=== PATIENT | female | born 1950 | race Caucasian/White ===

== ENCOUNTER 2018-09-25 09:46 | Inpatient (IN) | payer MEDICARE ==
[~2018-09-25] VITALS: Ht 167.6 cm; Wt 78.5 kg
[2018-10-29] VITALS (12 sets, daily range): BP systolic 110–157; BP diastolic 53–85; PULSE 55–98; TEMP 96.5–98.1
[2018-10-29] MEDS ORDERED: CLARITIN 1010 MG/TAB PO (02:06)
[2018-10-29] MEDS ORDERED: MULTIPLE VITAMI1 CAP PO (02:06)
[2018-10-29] MEDS ORDERED: OMEGA-3 1000 MG1 CAP PO (02:07)
[2018-10-29] MEDS ORDERED: CYMBALTA 20MG20 MG PO (02:08)
[2018-10-29] MEDS ORDERED: FLONASE NASAL S16 GM NS (02:08)
[2018-10-29] MEDS ORDERED: PRIL40 PO (02:08)
[2018-10-29] MEDS ORDERED: XANAX 0.5MG0.5 MG PO (02:09)
--- NOTE | 2018-10-29 07:08 | NUR ---
report from Maria ZAIDI.
--- NOTE | 2018-10-29 10:47 | NUR ---
PT TO ROOM 324 PER BED WITH DORINDA ZAIDI GIVING REPORT @ 1020. PT IS DROWSEY AND AROUSES TO VERBAL. LUNGS CLEAR, BOWEL SOUNDS ACTIVE, DRESSING TO LEFT KNEE CDI WITH AQUACEL OVER INCISION. SCDS TEDS AND POLAR PAC INPLACE.PT DENIES FEELING BELOW HIPS. IV TO PUMP PER ORDERS. PT TURNED TO SIDE AND WRINKELS SMOOTHED.
--- NOTE | 2018-10-29 11:09 | NUR ---
ANALI met with the patient and patient's , Robby, to discuss discharge plan. The patient lives in [place] with her . She reports independence with ADLs and has a walker. The patient's PCP is Dr. Samuel Araiza and she receives her medications at [facility]. She reports no difficulties obtaining her meds. The patient does not have advanced directives in EMR, but she states that she does have them completed. The patient plans to return home with her and receive outpatient therapy at the [facility] upon discharge. No additional needs at this time.
--- NOTE | 2018-10-29 21:30 | NUR ---
Assessment completed. Patient is A&O x 4. VSS, currently on 3 liters of supplemental O2 via nasal cannula. Pain is controlled at this time with current oral regimen. Aquacell dressing to left knee is CDI with cryocuff maintained to knee. Pedal pulses intact. BLE hiral hose/scds on. Encouraged ankle pumps while laying in bed. Briones catheter to DD with yellow clear urine draining. Patient had a large emesis while out in the hallway ambulating with staff, reported afterwards that she felt better and did not feel nauseous anymore. Ambulated approximately 100 feet with walker and gait belt, gait slow and steady. IVF infusing with intermittent antibiotic. Bed is in a low position with call light in reach.
--- NOTE | 2018-10-29 21:59 | NUR ---
Made a small snack for patient to take with oral pain medications since she had a large emesis. Patient tolerated small snack with no c/o nausea.
--- NOTE | 2018-10-29 23:40 | NUR ---
Patient called out stating she had vomitted, reported that she felt better afterwards and didn't feel nauseous anymore encouraged patient to try prn Zofran to assist since this was the second time she had vomitted and patient agreed.
[2018-10-30 00:11] VITALS: BP 149/77; PULSE 83; TEMP 98
--- NOTE | 2018-10-30 03:00 | NUR ---
Patient is resting in bed with eyes closed and even respirations, no signs of distress.
[2018-10-30 05:42] VITALS: BP 147/69; PULSE 77; TEMP 98.6
--- NOTE | 2018-10-30 05:54 | NUR ---
Patient has rested well through the night. VSS. Tele maintained. Pain controlled to left knee with alternating [place] at this time. BLE hiral hose removed at this time. Moderate amount of swelling noted to LLE, pedal pulses remain intact. Aquacell dressing to left knee remains CDI with a fresh ice pack applied this morning. Patient does voice concerns that she feels she has gone backwards in regards to progressing. Bed remains in a low position with bed alarm on and call light in reach.
--- NOTE | 2018-10-30 06:00 | NUR ---
Patient has rested well through the night. VSS. Pain has remained controlled with current oral regimen. Aquacell dressing to left knee remains CDI with the cryocuff maintained to knee. Patient denies feeling nauseous this morning after two episodes of emesis last night and receiving prn Zofran. Denies any concerns or needs at this time. IV to INT this morning after last dose of antibiotic. Will report off to day shift.
[2018-10-30 06:45] LABS: HEMATOCRIT 41.3 % (37.0-47.0); HEMOGLOBIN 14.1 g/dl (12.5-16.0)
--- NOTE | 2018-10-30 06:50 | NUR ---
awake resting in bed, bedside shift report received from DYAN Sifuentes
[2018-10-30 07:00] VITALS: BP 129/65; PULSE 79; TEMP 98.1
--- NOTE | 2018-10-30 07:00 | NUR ---
full assessment completed, see interventions for further info, will order breakfast soon, denies needs
[2018-10-30] MEDS ORDERED: ASPI325T6 PO (07:30)
[2018-10-30] MEDS ORDERED: ROXICODONE 55 MG/TAB PO (07:31)
[2018-10-30] MEDS ORDERED: NORCO 325 MG-7.1 TAB PO (07:31)
[2018-10-30] MEDS ORDERED: TYLENOL 500MG500 MG PO (07:31)
--- NOTE | 2018-10-30 09:00 | NUR ---
had breakfast and tolerated well, denies needs
--- NOTE | 2018-10-30 09:20 | NUR ---
physical therapy in to work with patient, ambulated in robles with steady gait
--- NOTE | 2018-10-30 10:50 | NUR ---
remains resting in chair, gonzales catheter discontinued, tolerated well
[2018-10-30 12:55] VITALS: BP 117/55; PULSE 83; TEMP 98.2
--- NOTE | 2018-10-30 13:11 | NUR ---
ambulated out to robles with physical therapy for group exercises
--- NOTE | 2018-10-30 14:00 | NUR ---
back to room after therapy and resting in bed, denies needs
--- NOTE | 2018-10-30 15:00 | NUR ---
awake resting in bed looking at a book
[2018-10-30 15:30] VITALS: BP 114/52; PULSE 80; TEMP 98
--- NOTE | 2018-10-30 15:30 | NUR ---
up to bathroom and voided large amount, denies needs
--- NOTE | 2018-10-30 18:00 | NUR ---
resting in recliner waiting for supper
--- NOTE | 2018-10-30 18:51 | NUR ---
bedside shift report given to DYAN Beck
[2018-10-30 20:00] VITALS: BP 124/53; PULSE 104; TEMP 99
--- NOTE | 2018-10-30 20:00 | NUR ---
Patient in chair resting, eating supper. Alert and oriented x 3. Shift assessment complete. Aquacell to left knee, CDI. Patient up to restoom with walker, steady gait. BS hypoactive all 4 quadrents patient denies passing gas. Up ambulating in robles, ambulated >150 feet. Denies pain or further needs at this time.
[2018-10-31 03:44] VITALS: BP 105/79; PULSE 81; TEMP 98.2
--- NOTE | 2018-10-31 05:26 | NUR ---
Patient has rested well through the night. Minimal needs. Has been up to restroom. Denies pain at this time. Denies further needs at this time.
[2018-10-31 08:15] VITALS: BP 124/52; PULSE 91; TEMP 98.2
--- NOTE | 2018-10-31 08:55 | NUR ---
PT UP TO RECLINER FOR BREAKFAST. DR MEYERS IN TO SEE PT. SEE COMPUTER FOR ORDERS. PT REPORTING PAIN IS WELL CONTROLLED. POSSIBLE DISCHARGE TO [facility] LATER TODAY.
--- NOTE | 2018-10-31 09:05 | NUR ---
PT UP TO RECLINER FOR BREAKFAST. PAIN CONTROLLED WITH PO MEDS. DISCHARGE LATER TODAY TO HOME.
--- NOTE | 2018-10-31 10:33 | NUR ---
Initial visit; Patient receptive to visit and to Computed Tomography Technician offering God's blessings.
--- NOTE | 2018-10-31 11:35 | NUR ---
Reviewed discharge instructions with patient and spouse, questions answered both verbalized understanding. Pt taken to front by wheel chair. pt left in POV.
== END 2018-10-31 10:45 | disposition home or self-care (01) | DRG 470 ==
LOC: SURG 10-29 05:09 → JCC 10-29 07:30 → SURG 10-31 10:45
PROVIDERS: ADMIT Orthopaedic Surgery
PROC: 0SRD0J9 Replacement of Left Knee Joint with Synthetic Substitute, Cemented, Open Approach (ICD-10-PCS; principal; 2018-10-29 07:30)
DX: M17.12 Unilateral primary osteoarthritis, left knee (principal); K21.9 Gastro-esophageal reflux disease without esophagitis; F41.9 Anxiety disorder, unspecified; J30.1 Allergic rhinitis due to pollen; M21.162 Varus deformity, not elsewhere classified, left knee
CPT/HCPCS: A4314; A9284; C1713; C1776; J0690; J1100; J2250; J2405; J2704; J3010; J7120

== ENCOUNTER → 2018-10-22 | Outpatient (CLI) | payer MEDICARE ==
[2018-10-22 13:28] LABS: HIV 1/2 Antibodies Non-Reactive; HIV-1p24 Antigen Non-Reactive
== END ==
LOC: COL.LAB 11:52
PROVIDERS: Orthopaedic Surgery
DX: Z01.812 Encounter for preprocedural laboratory examination (principal); M17.12 Unilateral primary osteoarthritis, left knee